=== PATIENT | female | born 1950 | race Caucasian/White ===

== ENCOUNTER 2019-09-28 14:48 | Outpatient (CLI) | payer MEDICARE, OTHER, SELFPAY ==
--- NOTE | 2019-09-28 14:57 | CT_ITS ---
WS: [id number] CT HEAD NONCONTRAST HISTORY: TREMOR, MENTAL STATUS CHANGE TECHNIQUE: Contiguous axial imaging performed through the brain in 2.5 mm imaging. Bone and soft tiss ue windows. All CT scans at [facility] use at least one of these dose optimization techniq ues: automated exposure control; mA and/or kV adjustment per patient size (includes targeted exams wh ere dose is matched to clinical indication); or iterative reconstruction. DLP: 752.58 mGycm COMPARISON: None available. No acute intracranial hemorrhage, midline shift or mass effect. Mild atrophy. Areas of decreased attenuation parieto-occipital regions bilaterally. Ventricles: Normal size with no hydrocephalus. No inferior displacement of cerebellar tonsils. Paranasal sinuses: As visualized are clear. Mastoid air cells: Moderate amount of fluid in the LEFT mastoid air cell. Calvarium and scalp: Skull is intact with no soft tissue edema or swelling. CT/CT head wo con* [id number] IMPRESSION: 1. No acute intracranial hemorrhage. 2. Mild atrophy. 3. Nonspecific areas of decreased attenuation in the parieto-occipital lobes, bilaterally. May be related to PRES or prior ischemia, less likely neoplastic. Consider follow-up MRI brain with contrast for further evaluation.
== END 2019-09-28 14:49 | disposition home or self-care (01) ==
LOC: RADWPI 14:53
PROVIDERS: Family Provider Nurse Practitioner Family; PCP Nurse Practitioner Family; Visit Provider Nurse Practitioner Family
DX: R41.82 Altered mental status, unspecified (principal); R25.1 Tremor, unspecified; G31.9 Degenerative disease of nervous system, unspecified
CPT/HCPCS: 70450

== ENCOUNTER → 2019-10-03 11:23 | Outpatient (BNVA) | payer MEDICARE, OTHER, SELFPAY | PROVIDERS: Family Provider Nurse Practitioner Family; PCP Nurse Practitioner Family; Visit Provider Specialist | DX: G25.0 Essential tremor (principal); G31.84 Mild cognitive impairment of uncertain or unknown etiology | CPT/HCPCS: 99204 ==

== ENCOUNTER → 2019-12-06 14:05 | Outpatient (BNVA) | payer MEDICARE, OTHER, SELFPAY | PROVIDERS: Family Provider Nurse Practitioner Family; PCP Nurse Practitioner Family; Visit Provider Specialist | DX: G20 Parkinson's disease (principal) | CPT/HCPCS: 99214 ==

== ENCOUNTER → 2020-02-28 14:40 | Outpatient (BNVA) | payer MEDICARE, OTHER, SELFPAY | PROVIDERS: Family Provider Nurse Practitioner Family; PCP Nurse Practitioner Family; Visit Provider Specialist | DX: R25.1 Tremor, unspecified (principal) | CPT/HCPCS: 99214 ==

== ENCOUNTER 2020-05-29 13:54 | Emergency (ER) | payer MEDICARE, OTHER, SELFPAY ==
[2020-05-29 14:22] VITALS: BP 134/82; PULSE 71; RESP 16; TEMP 36.2; O2SAT 96; BMI 39.9
--- NOTE | 2020-05-29 14:28 | CT_ITS ---
WS: [id number] CT CERVICAL SPINE HISTORY: fall/trauma TECHNIQUE: Contiguous 2.5 mm axial imaging performed through the entire cervical spine. Sagittal and coronal reformats also performed. All CT scans at [facility] use at least one of these do se optimization techniques: automated exposure control; mA and/or kV adjustment per patient size (inc ludes targeted exams where dose is matched to clinical indication); or iterative reconstruction. DLP: 622.29 mGy.cm COMPARISON: None available. Straightening of the normal cervical lordosis. Less than 2 mm anterolisthesis of C3 and C4. Craniocer vical junction is intact. Lateral masses of C1 and C2 are normal. No acute fracture. Degenerative dis c space narrowing and desiccation throughout the cervical spine. Bilateral multilevel facet joint art hritis. No fractures are evident. Mild RIGHT foraminal narrowing at C3-4, C4-5, bilateral at C5-6 and C6-7. No acute-appearing disc herniations. Paraspinal soft tissues are negative. CT/CT cervical spin wo con* [id number] IMPRESSION: 1. No acute cervical spine fracture. 2. Multilevel facet joint arthritis and spondylosis. No high-grade central or foraminal stenosis.
--- NOTE | 2020-05-29 14:28 | CT_ITS ---
WS: [id number] CT HEAD NONCONTRAST HISTORY: trauma TECHNIQUE: Contiguous axial imaging performed through the brain in 2.5 mm imaging. Bone and soft tiss ue windows. Sagittal and coronal reformats reviewed. All CT scans at [facility] use at ast one of these dose optimization techniques: automated exposure control; mA and/or kV adjustment pe r patient size (includes targeted exams where dose is matched to clinical indication); or iterative r econstruction. DLP: 790.31 mGy.cm COMPARISON: 09/28/2019 No acute intracranial hemorrhage, midline shift or mass effect. Mild atrophy and mild chronic microvascular ischemic disease. No prior infarcts. Ventricles: Normal size with no hydrocephalus. Paranasal sinuses: As visualized are clear. Mastoid air cells: Increased fluid in the LEFT inferior mastoid air cells. RIGHT mastoid air cells cl ear. Calvarium and scalp: Skull is intact with no soft tissue edema or swelling. CT/CT head wo con* [id number] IMPRESSION: Stable head CT. No acute intracranial process.
--- NOTE | 2020-05-29 16:35 | W.ED.HEATRA ---
HPI - Head Injury General: Chief complaint: Head Injury Stated complaint: Fall/ Hit head Time Seen by Provider: 05/29/20 16:02 History of Present Illness: HPI Narrative: 69 year old female into the emergency department after a fall 2 days earlier. Patient reports this was a ground-level fall where she just tripped and struck her head. The patient is on an aspirin. She did not get knocked out. Since that time she has felt funny and swimmy in her head. Patient does not have an actual headache she reports. There has been any vomiting nor is there been any vision changes. She does not have any lacerations abrasions or swelling over her head. She struck the back of her head. She has mild neck pain. Patient reports she hurt her ankle a little bit but she has been walking on it she denies any other significant injury or complaint. Complaint: head injury and fall Onset (ago): day(s) Mechanism of Injury: fall Place: home Loss of Consciousness: no Associated symptoms: Reports no associated symptoms Review of Systems General: Reports: 10 or more systems reviewed and unremarkable except in HPI and below PFSH ED PFSH: Social History Smoking and tobacco status: never smoked Physical Exam Const: COMMON NORMALS: no acute distress, patient oriented x3, healthy appearing and alert EXAM LIMITATIONS: no altered mental status ORIENTATION/CONSCIOUSNESS: Yes oriented to person, Yes oriented to place and Yes oriented to time Chest: COMMONS NORMALS: normal inspection of the chest Resp: COMMON NORMALS: normal respiratory effort EFFORT & INSPECTION: Yes able to speak in complete sentences Cardio: COMMON NORMALS: regular rate and regular rhythm RATE: regular rate RHYTHM: regular rhythm Extremity: COMMON NORMALS: normal to inspection GENERAL: Yes normal exam except as noted Neuro: [place] COMA SCALE: document GCS findings [place] coma scale eye opening: Spontaneous King coma scale verbal response: Orientated [place] coma scale motor response: Obey commands [place] coma scale total score: 15 COMMON NORMALS: patient oriented x3 SENSORIUM/ORIENTATION: Yes alert, Yes oriented to person, Yes oriented to place and Yes oriented to time CRANIAL NERVES: Yes CN normal except as noted SPEECH: speech normal GAIT: Yes Normal gait present SENSORY EXAM: Yes extremities MOTOR EXAM: 5/5 motor strength present throughout Course Vital Signs: Vital signs: Vital Signs Temperature 97.2 F L 05/29/20 14:22 Pulse Rate 71 05/29/20 14:22 Respiratory Rate 16 05/29/20 14:22 Blood Pressure 134/82 05/29/20 14:22 Pulse Oximetry 96 05/29/20 14:22 MDM - Head Injury MDM Narrative: Medical decision making narrative: 69-year-old female in after a fall with persistent neurologic symptoms. The patient family and facility are concerned that she has more severe injury or intracranial bleed. We will go ahead and scan her head and neck and make further recommendations her neurologic examination is stable. Patient's head CT did not reveal any acute intracranial process the CT scan of her neck showed some multilevel facet joint arthritis but no high-grade central or foraminal stenosis. Patient will be treated conservatively and released. Discharge Plan Discharge Prescriptions: No Action aspirin [Adult Aspirin Regimen] 81 mg tablet,delayed release (DR/EC) 81 mg PO DAILY RF: 0 vitamin B complex Tablet 1 tab PO DAILY RF: 0 cetirizine 10 mg tablet 5 mg PO DAILY PRNRF: 0 fluticasone propionate [Allergy Relief (fluticasone)] 50 mcg/actuation spray,suspension 1 spray INTRANASAL DAILY RF: 0 levothyroxine 100 mcg capsule 100 mcg PO DAILY RF: 0 metoprolol tartrate 25 mg tablet 12.5 mg PO BID RF: 0 Prempro 0.625-5 mg tablet 1 tab PO DAILY RF: 0 tramadol 50 mg tablet 50 mg PO DAILY RF: 0 ergocalciferol (vitamin D2) 1,250 mcg (50,000 unit) capsule 1,250 mcg PO .Weekly RF: 0 tramadol 50 mg tablet 50 mg PO Q6H PRNRF: 0 carbidopa-levodopa [Sinemet] 25-100 mg tablet 2 tab PO TID Qty: 180 RF: 3 fluoxetine 40 mg capsule 40 mg PO DAILY Qty: 90 RF: 2 trazodone 50 mg tablet 50 mg PO .@HS Qty: 30 RF: 3 alprazolam 0.25 mg tablet 0.25 mg PO BID RF: 0 Coding Level of Care Code ED Bar Waiter/Waitress for Chg Fwd Exam Detailed
[2020-05-29 16:55] VITALS: RESP 16; TEMP 36.2; O2SAT 96
== END 2020-05-29 17:01 | disposition home or self-care (01) ==
PROVIDERS: Emergency Provider Family Medicine; PCP Nurse Practitioner Family
DX: S09.90XA Unspecified injury of head, initial encounter (principal); Z79.82 Long term (current) use of aspirin; W01.10XA Fall on same level from slipping, tripping and stumbling with subsequent striking against unspecified object, initial encounter
CPT/HCPCS: 12345; 70450; 72125; 99281; 99282

== ENCOUNTER → 2020-08-07 14:47 | Outpatient (BNVA) | payer MEDICARE, OTHER, SELFPAY | PROVIDERS: PCP Nurse Practitioner Family; Visit Provider Specialist | DX: G20 Parkinson's disease (principal) | CPT/HCPCS: 99213 ==

== ENCOUNTER → 2021-04-08 12:58 | Outpatient (BNVA) | payer MEDICARE, OTHER, SELFPAY | PROVIDERS: PCP Nurse Practitioner Family; Visit Provider Specialist | DX: G20 Parkinson's disease (principal); R26.9 Unspecified abnormalities of gait and mobility; Z87.891 Personal history of nicotine dependence | CPT/HCPCS: 99214 ==

== ENCOUNTER → 2022-04-07 14:49 | Outpatient (BNVA) | payer MEDICARE, OTHER, SELFPAY | PROVIDERS: PCP Nurse Practitioner Family; Visit Provider Specialist | DX: G20 Parkinson's disease (principal); F43.10 Post-traumatic stress disorder, unspecified | CPT/HCPCS: 99214 ==

== ENCOUNTER → 2022-12-02 13:52 | Outpatient (BNVA) | payer MEDICARE, OTHER, SELFPAY | PROVIDERS: PCP Nurse Practitioner Family; Visit Provider Specialist | DX: G20 Parkinson's disease (principal) | CPT/HCPCS: 99213 ==

== ENCOUNTER → 2023-12-15 15:45 | Outpatient (BNVA) | payer MEDICARE, OTHER, SELFPAY | PROVIDERS: PCP Nurse Practitioner Family; Visit Provider Specialist | DX: G20.A1 Parkinson's disease without dyskinesia, without mention of fluctuations (principal) | CPT/HCPCS: 99213 ==

== ENCOUNTER → 2024-12-05 14:01 | Outpatient (BNVA) | payer MEDICARE, OTHER, SELFPAY | PROVIDERS: PCP Nurse Practitioner Family; Visit Provider Specialist | DX: G20.A1 Parkinson's disease without dyskinesia, without mention of fluctuations (principal) | CPT/HCPCS: 99213 ==